=== PATIENT | male | born 1960 | race Caucasian/White ===

== ENCOUNTER 2019-11-13 13:05 | Emergency (ER) | payer SELFPAY ==
[2019-11-13 13:20] VITALS: BP 134/69; PULSE 63; RESP 14; TEMP 35.9; O2SAT 98; BMI 30.1
[2019-11-13 13:32] VITALS: RESP 17
--- NOTE | 2019-11-13 13:34 | PC.NURSE ---
pt has pedal pulses intact. has sensation intact and has capillary refill less than 3 seconds in left foot
--- NOTE | 2019-11-13 13:48 | XR_ITS ---
WS: [id number] XR knee LT 3V* [id number] REASON FOR EXAM: laceration FINDINGS: The meniscal spaces are normal. The patella appears to be tracking slightly medially. No fractures of the tibia fibula or femur. The patella tibial space is normal. There is spurring off the tibial tubercle. The patella femoral articulations normal. XR/XR knee LT 3V* [id number] IMPRESSION: Remote Ze slaughters disease Mild osteoarthritic changes.
[2019-11-13] MEDS: ceFAZolin 1,000 MG in sodium chloride 0.9% (plus) 50 ML 100 MG IV (13:53)
--- NOTE | 2019-11-13 13:54 | ED_ITS ---
HPI - Wound/Laceration General: Chief Complaint: Wound/Laceration Stated Complaint: knee pain Time Seen by Provider: 11/13/19 13:31 History of Present Illness: HPI narrative: 58-year-old male was using a chainsaw at home cut his left knee over the patella just inferior to the patella he was able to walk well after he denies any other injuries. His last tetanus shot was 4 to 5 days ago it initially bled it is not bleeding now I came to the room was wrapped and well bandaged. Onset (ago): minute(s) Extremity Location: Left: knee Place: home Patient tetanus UTD: Yes Context: accidental Associated symptoms: Reports no associated symptoms; Denies chills, fever(s), nausea or vomiting Treatments prior to arrival: bandage Review of Systems Const: Denies: fever(s), chills, body aches, change in appetite, fatigue or malaise ENMT: Denies: throat pain, ear or mastoid pain, nasal discharge or nasal congestion Card: Denies: chest pain, edema, dyspnea on exertion or orthopnea Resp: Denies: dyspnea, productive cough or non-productive cough GI: Denies: abdominal pain, nausea, vomiting, hematemesis, coffee ground emesis, diarrhea, constipation, bloating, hematochezia or melena : Denies: flank pain, dysuria, urinary frequency or urinary urgency Skin/Breast: Denies: rash or pruritus PFSH ED PFSH: Surgical History (Updated 11/13/19 @ 13:56 by Usama Chung DO) History of hernia repair Social History Smoking and tobacco status: current every day smoker Physical Exam Const: COMMON NORMALS: no acute distress GENERAL APPEARANCE: cooperative and comfortable ORIENTATION/CONSCIOUSNESS: Yes awake, Yes oriented to person, Yes oriented to place and Yes oriented to time HENMT: COMMON NORMALS: normocephalic, atraumatic and hearing grossly normal bilaterally HEAD & SCALP: normocephalic and atraumatic Eye: COMMON NORMALS: EOMs intact bilaterally, conjunctivae normal and no scleral icterus CONJUNCTIVA: Yes conjunctivae normal Resp: COMMON NORMALS: normal respiratory effort, No retractions, No use of accessory muscles and clear to auscultation bilaterally AUSCULTATION: clear to auscultation bilaterally Cardio: COMMON NORMALS: regular rate, regular rhythm and No murmurs present (Cardio) RATE: regular rate RHYTHM: regular rhythm GI: COMMON NORMALS: Soft to palpation and No hepatosplenomegaly present INSPECTION: Yes central obesity AUSCULTATION: Yes normoactive bowel sounds PALPATION: Yes Soft to palpation, No Tenderness to palpation present (GI), No Guarding due to palpation present (GI) and Yes No hepatosplenomegaly present Extremity: COMMON NORMALS: normal to inspection, capillary refill normal, no clubbing, cyanosis or edema, no calf tenderness and no pedal edema Neuro: SENSORIUM/ORIENTATION: Yes oriented to person, Yes oriented to place and Yes oriented to time Skin: COMMON NORMALS: no rashes or lesions noted NARRATIVE SKIN EXAM: Mucous laceration across the knee with clean edges no debris present see procedure note GENERAL SKIN EXAM: no rashes or lesions noted Procedures Laceration Laceration 1: Site: lower extremity (Knee) Side (If applicable): left Size (cm): 10 Description: linear Depth: simple, single layer Local Anesthetic: lidocaine 1% and with epi Amount of anesthesia used (mL): 6 Pre-repair: wound explored, irrigated extensively, deep structures intact and extensive debridement Skin layer closed with: nylon Size (cm): 3-0 Technique: other (Running locking suture) Course Vital Signs: Vital signs: Vital Signs Temperature 96.6 F L 11/13/19 13:20 Pulse Rate 63 11/13/19 13:20 Respiratory Rate 18 11/13/19 15:49 Blood Pressure 134/69 11/13/19 13:20 Pulse Oximetry 98 11/13/19 15:49 MDM - Wound/Laceration MDM Narrative: Medical decision making narrative: Instructions given we will treat him with topical mupirocin here and continue that as an outpatient patient sutures out in 7 to 10 days watch for signs of infection. Discharge Plan Discharge Patient Disposition: Home, Self-Care Clinical Impression: Laceration Condition: Stable Prescriptions: New mupirocin 2 % ointment 1 applic TOPICAL BID Qty: 22 RF: 0 Discharge Orders: Discharge Order (Routine); Ordered 11/13/19 Ordered By: Usama Chung Discharge Diet: Usual diet Discharge Activity: Resume usual activity Patient Instructions: Laceration (ED) Activity Restrictions/Additional Instructions: With sutures in 10 days Discharge Date/Time: 11/13/19 15:50 Coding Level of Care Code ED [employer] for Chg Fwd Exam Comprehensive
[2019-11-13 15:34] VITALS: RESP 18
[2019-11-13 15:49] VITALS: RESP 18; O2SAT 98
== END 2019-11-13 15:50 | disposition home or self-care (01) ==
PROVIDERS: Emergency Provider Family Medicine
DX: S81.012A Laceration without foreign body, left knee, initial encounter (principal); W29.3XXA Contact with powered garden and outdoor hand tools and machinery, initial encounter; F17.210 Nicotine dependence, cigarettes, uncomplicated
CPT/HCPCS: 12004; 12345; 73562; 96365; 99283; J0690; J2001